=== PATIENT | female | born 1965 | race Caucasian/White ===

== ENCOUNTER 2020-11-21 13:57 | Outpatient (CLI) | payer MEDICAID, SELFPAY ==
--- NOTE | 2020-11-21 14:03 | XRR_ITS ---
PROCEDURE INFORMATION: Exam: XR Abdomen Exam date and time: 11/21/2020 2:15 PM Age: 55 years old Clinical indication: Condition or disease; Kidney or ureter condition; Calculus (stone) in kidney; Other: Blood in urine; Prior surgery; Surgery type: C section, gb; Additional info: Stones TECHNIQUE: Imaging protocol: XR of the abdomen. Views: Frontal supine view of the abdomen. 1 View. COMPARISON: CR XR KUB [id number] 07/20/2019 1:28 PM FINDINGS: Tubes, catheters and devices: A vena cava filter is present in good position. Gastrointestinal tract: Normal. No bowel dilation. There is evidence of cholecystectomy. Intraperitoneal space: Metallic surgical clip is seen in the left lower pelvis. 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 XR/XR KUB [id number] IMPRESSION: 1. No acute findings. 2. Vena cava filter in good position. 3. Status post cholecystectomy 4. Metallic surgical clips left pelvis COMMENTS: For patients with an IVC filter, recommend assessment for a management plan for the patient???s IVC filter. If there is no established management plan, recommend referral to an interventional clinician on a nonemergent basis for evaluation.
== END 2020-11-21 13:58 | disposition home or self-care (01) ==
PROVIDERS: PCP Student in an Organized Health Care Education/Training Program; Visit Provider Urology
DX: N20.0 Calculus of kidney (principal); Z90.49 Acquired absence of other specified parts of digestive tract
CPT/HCPCS: 74018; 81003; 87086

== ENCOUNTER 2020-11-27 07:51 | Outpatient (CLI) | payer MEDICAID, SELFPAY ==
--- NOTE | 2020-11-27 09:00 | CT_ITS ---
WS: [id number] CT ABDOMEN PELVIS TECHNIQUE: Noncontrast CT of the abdomen and pelvis with coronal and sagittal reformatted images. CLINICAL INFORMATION: URETERAL STONE COMPARISON: CT 6 03/10 DLP: 2516.[address] scans at [facility] use at least one of these dose optimization techniques: automat ed exposure control; mA and/or kV adjustment per patient size (includes targeted exams where dose is matched to clinical indication); or iterative reconstruction. FINDINGS: Bilateral renal cortical atrophy right greater than left. This is unchanged from previous. Multiple e xophytic renal cysts. Some are too small to characterize. A few are increased attenuation likely hemo rrhagic or proteinaceous debris. No hydronephrosis in either kidney. Nonobstructing bilateral renal p arenchymal subcentimeter calculi and renal vascular calcifications. Noncontrast liver is normal. Cholecystectomy clips. Stable lobulated noncontrast spleen. Noncontrast pancreas is unremarkable. Normal GE junction. Mild aortic calcification. IVC filter. Fat-containing ventral abdominal wall hernia no herniated bowel. Epigastric fat-containing ventral ab dominal wall hernia. Hernias are unchanged from previous. No small or large bowel obstruction. No free fluid in the pelvis. Moderate spondylitic changes lumbar spine. CT/CT kidney stone [id number] IMPRESSION: 1. No obstructing renal or ureteral calculi. Right renal cortical atrophy. 2. Nonobstructing subcentimeter renal parenchymal calculi and vascular calcifi cations. 3. Multiple bilateral renal cystsare unchanged. Some are too small to abhay escalante. 4. Prior cholecystectomy. 5. No other significant changes from previous.
== END 2020-11-27 07:52 | disposition home or self-care (01) ==
LOC: RAD 07:53
PROVIDERS: PCP Student in an Organized Health Care Education/Training Program; Visit Provider Urology
DX: N20.1 Calculus of ureter (principal); Z90.49 Acquired absence of other specified parts of digestive tract; Q61.02 Congenital multiple renal cysts
CPT/HCPCS: 74176; 81003

== ENCOUNTER → 2021-05-09 14:06 | Outpatient (BNVA) | payer MEDICAID, SELFPAY | PROVIDERS: PCP Student in an Organized Health Care Education/Training Program; Visit Provider Urology | DX: N30.80 Other cystitis without hematuria (principal); N20.9 Urinary calculus, unspecified | CPT/HCPCS: 81003 ==

== ENCOUNTER 2022-05-06 14:36 | Outpatient (CLI) | payer MEDICAID, SELFPAY ==
--- NOTE | 2022-05-06 15:00 | XR_ITS ---
WS: [id number] Exam: XR KUB [id number] Date/Time of Exam: 05/06/2022 2:40 PM Reason For Exam: UROLITHIASIS Comparison 11/21/2020. Multiple calcifications superimpose both kidneys apparently representing known renal stones. No bowel obstruction or free air. Signs of prior cholecystectomy. No sign of organ enlargement. IVC filter in place. Moderate degenerative change of the lumbar spine and levoscoliosis. Nonspecific pelvic calcif ications. Surgical clips seen in the region of the right hip and lower left pelvis. XR/XR KUB [id number] IMPRESSION: 1. Multiple calcifications superimpose both kidneys suggesting renal stones. 2. Status post cholecystectomy, IVC filter in place and additional nonemergent findings.
== END 2022-05-06 14:37 | disposition home or self-care (01) ==
LOC: RAD 14:37
PROVIDERS: PCP Student in an Organized Health Care Education/Training Program; Visit Provider Urology
DX: N30.80 Other cystitis without hematuria (principal); Z90.49 Acquired absence of other specified parts of digestive tract; N20.9 Urinary calculus, unspecified; E21.3 Hyperparathyroidism, unspecified
CPT/HCPCS: 74018; 81003; 87086; 99213

== ENCOUNTER 2022-11-08 09:51 | Outpatient (CLI) | payer MEDICAID, SELFPAY ==
--- NOTE | 2022-11-08 10:03 | XR_ITS ---
WS: [id number] KUB, AP view, 11/08/2022 Clinical Data: STONE Comparison: None. Findings: There are calcifications overlying both kidneys but they are obscured by overlying fecal material and bowel gas. No abnormal intraabdominal masses are seen. There is no dilatated small bowel or evidence of obstruct ion. There is an IVC filter in position unchanged. There are clips in the right upper quadrant from a chol ecystectomy. There is a levoscoliosis with osteoarthritis of the lumbar spine. There are surgical cli ps in the right inguinal area and in the left true pelvis. XR/XR KUB [id number] Impression: Bilateral renal calcifications.
== END 2022-11-08 09:52 | disposition home or self-care (01) ==
LOC: RAD 09:55
PROVIDERS: Visit Provider Urology
DX: N20.0 Calculus of kidney (principal); R31.0 Gross hematuria; N26.1 Atrophy of kidney (terminal); N30.80 Other cystitis without hematuria; E21.3 Hyperparathyroidism, unspecified
CPT/HCPCS: 74018; 81003; 99215

== ENCOUNTER 2022-11-13 06:20 | Day surgery (SDC) | payer MEDICAID, SELFPAY ==
[2022-11-12 16:08] VITALS: BMI 33.6
[2022-11-13] VITALS (7 sets, daily range): BP systolic 94–126; BP diastolic 61–86; PULSE 72–85; RESP 15–18; TEMP 36.1–36.4; O2SAT 93–97
[2022-11-13 06:57] LABS: Glucose Point of Care 123 mg/dL (70-110)
[2022-11-13] MEDS: sodium chloride 0.9% 1,000 ML 30 ML IV (07:09)
[2022-11-13 07:23] LABS: Basophils # 0.1 10^3/uL (0.0-0.1); Basophils % 1.5 %; Eosinophils # 0.5 10^3/uL (0.0-0.8); Eosinophils % 5.9 %; Hemoglobin 15.3 g/dL (11.5-15.3); Mean Corpuscular HGB Conc 33.3 g/dL (30.0-36.0); Mean Corpuscular Volume 96.2 fl (81-99); Mean Platelet Volume 9.8 fL (7.4-10.4); Monocytes # 0.6 10^3/uL (0.2-0.9); Monocytes % 6.5 %; Neutrophils # 5.88 10^3/uL (1.8-7.7); Neutrophils % 63.9 %; Nucleated Red Blood Cells % 0 %; Platelet Count 367 10^3/cmm (130-400); Red Blood Count 4.78 10^6/uL (4.1-5.3); Red Cell Distribution Width 14.6 % (12.1-15.1); White Blood Count 9.2 10^3/uL (4.0-10.0)
--- NOTE | 2022-11-13 07:37 | P.ANESASSM_ITS ---
Pre-Anesthetic Assessment Height/Weight: Height 1.7 m Weight 97.522 kg Temp Pulse Resp BP Pulse Ox O2 Del Method 97.6 F 80 18 126/86 96 11/13/22 06:45 11/13/22 06:45 11/13/22 06:45 11/13/22 06:45 11/13/22 06:45 11/13/22 06:45 Preop Diagnosis: Gross hematuria right upper urinary tract Operation Date: 11/13/22 08:15 Proposed Procedures p CYSTOSCOPY RIGHT RETROGRADE URETEROSCOPY STENT 32638 MOD 26 09628 ,N20.9(Not Applicable) - Arslan Murphy MD s Retrograde Pyelogram(Right) - Arslan Murphy MD s Ureteroscopy(Right) - Arslan Murphy MD s Ureteral Stent Placement(Right) - Arslan Murphy MD Familial anesthetic complications: None Was Beta Jenaro taken within 24 hours: Yes Was Clonidine taken within 24 hours: N/A Last intake: Intake Last Liquid Date 11/12/22 Last Liquid Time 19:00 Last Solid Date 11/12/22 Last Solid Time 19:00 Social Tobacco and No alcohol Exam alert, oriented x 3, clear to auscultation bilaterally and regular rate & rhythm Airway Mallampati: Class III Dentition: chipped CV/HEM Coronary Artery Disease (stent on plavix), Hypertension and Myocardial Infarction GI Gastroesophageal Reflux Disease Metabolic Diabetes Mellitus Anesthetic Plan ASA status: 3 Anesthesia: General Risk of > 500 ml blood loss (7ml/kg in children): No Medications/Allergies Home Medications Medication Instructions Recorded Confirmed Last Taken Type ascorbic acid (vitamin C) 1,000 mg 1 g PO DAILY 11/21/20 11/13/22 11/11/22 History tablet aspirin 81 mg tablet,delayed 81 mg PO DAILY 11/21/20 11/13/22 11/12/22 History release (Adult Aspirin Regimen) carvedilol 3.125 mg tablet 3.125 mg PO BID 11/21/20 11/13/22 11/13/22 History clopidogrel 75 mg tablet 75 mg PO DAILY 11/21/20 11/13/22 11/08/22 History metformin 500 mg tablet 500 mg PO BID 11/21/20 11/13/22 11/12/22 History trazodone 50 mg tablet 50 mg PO .HS 11/21/20 11/13/22 11/12/22 History allopurinol 100 mg tablet 300 mg PO DAILY 05/09/21 11/13/22 11/12/22 History atorvastatin 20 mg tablet 40 mg PO DAILY 05/09/21 11/13/22 11/12/22 History lisinopril 2.5 mg tablet 10 mg PO DAILY 05/09/21 11/13/22 11/12/22 History pantoprazole 40 mg tablet,delayed 40 mg PO DAILY 05/09/21 11/13/22 11/12/22 History release cephalexin 500 mg capsule 500 mg PO Q8H 11/08/22 11/13/22 11/12/22 History hydrocodone 5 mg-acetaminophen 325 1 tab PO BID PRN Pain 11/08/22 11/13/22 1 Week Ago History mg tablet ~11/06/22 ondansetron 4 mg disintegrating 4 mg PO Q8H 11/08/22 11/13/22 1 Week Ago History tablet ~11/06/22 methenamine hippurate 1 gram tablet 1 g PO BID 11/13/22 11/13/22 11/12/22 History Allergies Allergy/AdvReac Type Severity Reaction Status Date / Time morphine Allergy ADR-Vomitin Verified 11/13/22 06:55 g Penicillins Allergy unknown Verified 11/13/22 06:55 prochlorperazine Allergy unknown Verified 11/13/22 06:55 [From Compazine] Current Medications Generic Name Dose Route Start Last Admin Trade Name Freq PRN Reason Stop Dose Admin Sodium Chloride 1,000 mls @ 30 mls/hr 11/13/22 06:45 11/13/22 07:09 Sodium Chloride 0.9% IV 11/14/22 06:44 30 mls/hr .Q24H SHANON Administration PFSH Anesthesia Medical History Cystitis cystica Diabetes Gross hematuria HTN (hypertension) Renal calculus, bilateral Right renal atrophy Urolithiasis UTI (urinary tract infection) Surgical History H/O tubal ligation H/O: Hx of cholecystectomy Status post cystoscopy with ureteral stent placement Family History Mother , at age 75 Dementia Stroke Father , at age 58 Heart attack Social History Smoking and tobacco status: current every day smoker Alcohol intake: never Marital status: Current occupational status: disabled Current gender identity: Female Data Anesthesia 11/13/22 06:54 11/13/22 06:54 Short CBC 11/13/22 Range/Units 06:54 WBC 9.2 (4.0-10.0) 10^3/uL Hgb 15.3 (11.5-15.3) g/dL Hct 46.0 (37.0-47.0) % MCV 96.2 (81-99) fl Plt Count 367 (130-400) 10^3/cmm Neut % (Auto) 63.9 % Neut # (Auto) 5.88 (1.8-7.7) 10^3/uL Cardiac Studies: No Data to Display
--- NOTE | 2022-11-13 07:41 | ECG_ITS ---
[facility] Test Date: 2022-11-13 Pat Name: Chioma Gudino Department: Room: Gender: Female Digital Composer: : 1965 Requested By: Danielle Avila Order Number: [id number] Alecia MD: Jadon Brady M.D. Measurements Intervals [place] Rate: 73 P: 20 WY: 183 QRS: 10 QRSD: 102 T: 27 QT: 375 QTc: 414 Interpretive Statements SINUS RHYTHM LOW QRS VOLTAGE IN PRECORDIAL LEADS [QRS DEFLECTION < 1.0 mV IN CHEST LEADS] POSSIBLE ANTERIOR MYOCARDIAL INFARCTION , OF INDETERMINATE AGE [30 ms Q WAVE IN V3/V4, OR R < 0.2 mV IN V4] POSSIBLE INFERIOR MYOCARDIAL INFARCTION , PROBABLY OLD [30 ms Q WAVE IN II/aVF] No previous ECG available for comparison Electronically Signed On 11-13-2022 10:28:42 MUSIC THEORY PROFESSOR by Jadon Brady M.D. [id number]
[2022-11-13 07:56] LABS: Alanine Aminotransferase 27 U/L (0-33); Alkaline Phosphatase 132 U/L (35-105); Anion Gap 16.2 (5-19); Aspartate Amino Transferase 25 U/L (0-32); Blood Urea Nitrogen 13 mg/dL (6-20); Calcium 11.5 mg/dL (8.5-10.5); Carbon Dioxide 22 mmol/L (22-29); Chloride 103 mmol/L (98-107); Glucose 106 mg/dL (65-115); Osmolality Calculated 285 mOsm/kg (285-295); Potassium 4.2 mmol/L (3.5-5.1); Sodium 137 mmol/L (136-145); Total Bilirubin 0.2 mg/dL (0.15-1.2)
--- NOTE | 2022-11-13 08:13 | P.HPUD_ITS ---
Surgery/Procedure H&P Update DATE OF PROCEDURE: November 13, 2022 DATE H&P PERFORMED: 11/08/22 H&P UPDATE INFORMATION: I have reviewed H&P completed within last 30 days, I have examined patient prior to procedure, No changes to prior documentation and H&P is in [facility] [facility] on date indicated PREOP DIAGNOSIS: Gross hematuria right upper urinary tract PLANNED PROCEDURE: Operation Date: 11/13/22 08:15 Proposed Procedures p CYSTOSCOPY RIGHT RETROGRADE URETEROSCOPY STENT [id number] [facility] [place] 26 [id number],N20.9(Not Applicable) - Arslan Murphy MD s Retrograde Pyelogram(Right) - Arslan Murphy MD s Ureteroscopy(Right) - Arslan Murphy MD s Ureteral Stent Placement(Right) - Arslan Murphy MD
[2022-11-13] MEDS: levofloxacin-dextrose 5 % 500 MG/100 ML PREMIX 100 MG IV (08:33)
--- NOTE | 2022-11-13 09:26 | P.OP_ITS ---
Operative Report Date of procedure: November 13, 2022 Pre-op diagnosis: Gross hematuria secondary to renal bleeding of unclear etiology Post-op diagnosis: No active residual bleeding. No significant pathology identified on flexible ureterorenoscopy Procedure done: 1. Cystoscopy, RIGHT retrograde ureteropyelogram 2. Right ureteral renoscopy, no stent 3. Intraoperative fluoroscopy exclusive of radiology interpretation Implants: None Specimens removed/disposition: None Pathology: None Surgeon: Jeffrey Estimated blood loss: None Urine output: Not measured Complications: None Findings: Anesthesia: General Condition: Stable Disposition: PACU Intraoperative findings: * No evidence of upper urinary tract tumor. * There was a vascular area in the right upper pole calyx without malignant features. Probably a function of some of the severe atrophy. Could be a source of recurrent bleeding. * Ureteritis cystica and several spots along the ureter that were identified on the retrograde as filling defects. Brief History: Chioma is a very pleasant 57-year-old white female with a history of severe right renal atrophy, recurrent stones, and recent severe gross hematuria with identified clot in the right kidney on CT scan. She has since cleared all the clot and no active bleeding. She had stopped her Plavix. No distinct abnormality could be identified as far as concern for TCCA of the upper tract on current or old CT scans. It was recommended she undergo flexible ureterorenoscopy diagnostically. Procedure: After routine preoperative evaluation examination and obtaining of informed consent she was taken to the operating suite on 11/13/2022 where general anesthesia was administered without difficulty after appropriate timeout was performed, SCDs confirmed to be functioning, preoperative antibiotics administered, beta mac protocol confirmed. Prepped and draped in usual sterile fashion in dorsolithotomy position being careful attention to avoiding pressure points. 21 Turkish cystoscope with 30 degree lens was introduced into the urethra meatus and advanced into the bladder to videoscopy. Bladder was systematically examined. No gross abnormalities identified. No bloody efflux from either orifice. An 8 Turkish cone-tip catheter was intubated into the right ureteral orifice for right retrograde ureteropyelogram which demonstrated: Normal course and caliber of the ureter. There was a couple filling defects along the course of the ureter it could have been stones. There is no residual clot in the renal pelvis. No other gross abnormalities were seen in the upper urinary tract. A flexible tip guidewire was then easily advanced up the right ureter curling in the area of the upper pole calyx. A second guidewire was passed. The first secured to the drapes as a safety wire and the second used as a working wire. The inner guide on a 28 ureteral access sheath was advanced over the guidewire under fluoroscopic visualization for dilation of the distal ureter and then the assembled sheath with the inner guide was then passed easily to the hub. The working wire was removed as well as the inner guide and then a flexible ureterorenoscopy was performed by passing the scope on through the sheath into the renal pelvis without difficulty. Contrast was utilized to help facilitate guidance of the scope into all the different calyces and this was accomplished. The only abnormality was a vascular area that looked friable but was not actively bleeding in the right upper pole calyx more medially. It did not have the appearance of a TCCA. My suspicion was it was a consequence of chronic severe renal atrophy. She did have some sediment and some adherent stones that were small scattered throughout the calyces. The scope was then withdrawn under visualization and the sheath was backed down to the hub of the scope. There were several areas consistent with URETERITIS CYSTICA. Nothing else pathologic and no stones in the ureter. The scope was removed the bladder was drained the safety wire removed and the procedure completed. She tolerated the procedure very well. She was awakened in the operating room and returned to PACU in stable condition. PLANS: 1. Anticipate discharge from outpatient surgery 2. Continue holding Plavix for 2 days and then can restart 3. Follow-up in about 3 months with a KUB in my office.
--- NOTE | 2022-11-13 13:53 | ANE.PACU2 ---
Inpatient post-anesthesia follow up: Airway intact: Yes Vital signs: Temperature 97.0 F Pulse Rate 73 Respiratory Rate 18 Blood Pressure 94/61 Pulse Oximetry 96 Oxygen Delivery Me thod Room Air Oxygen Flow Rate Fraction of Inspir ed Oxygen Hydration adequate: Yes Nausea and vomiting: No Pain level: 1 Mental status: Baseline
== END 2022-11-13 10:24 | disposition home or self-care (01) ==
PROVIDERS: Visit Provider Urology
PROC: 0TJB8ZZ Inspection of Bladder, Via Natural or Artificial Opening Endoscopic (ICD-10-PCS; CPT 52000; principal; 2022-11-13 08:15)
PROC: (CPT 74420; 2022-11-13 08:15)
PROC: 0TJ98ZZ Inspection of Ureter, Via Natural or Artificial Opening Endoscopic (ICD-10-PCS; CPT 52351; 2022-11-13 08:15)
DX: R31.0 Gross hematuria (principal); I25.10 Atherosclerotic heart disease of native coronary artery without angina pectoris; Z95.5 Presence of coronary angioplasty implant and graft; I10 Essential (primary) hypertension; Z79.02 Long term (current) use of antithrombotics/antiplatelets; I25.2 Old myocardial infarction; E11.9 Type 2 diabetes mellitus without complications; K21.9 Gastro-esophageal reflux disease without esophagitis; F17.210 Nicotine dependence, cigarettes, uncomplicated
CPT/HCPCS: 52351; 36416; 76000; 80053; 82962; 85025; 93005; J0330; J1100; J1956; J2370; J2405; J2704; J2710; J3010; J3490; J7030

== ENCOUNTER 2023-02-19 13:31 | Outpatient (CLI) | payer MEDICAID, SELFPAY | END 2023-02-19 13:32 | disposition home or self-care (01) | LOC: LAB 13:36 | PROVIDERS: Visit Provider Urology | DX: N30.81 Other cystitis with hematuria (principal); N20.0 Calculus of kidney; N26.1 Atrophy of kidney (terminal); E21.3 Hyperparathyroidism, unspecified; F17.200 Nicotine dependence, unspecified, uncomplicated; Z87.442 Personal history of urinary calculi; Z79.899 Other long term (current) drug therapy | CPT/HCPCS: 74018; 81003; 99213 ==